=== PATIENT | male | born 1955 | race Caucasian/White ===

== ENCOUNTER 2023-09-06 09:53 | Inpatient (IN) ==
[2023-09-06] MEDS: Lactated Ringers 1000 ml BAG 1,000 ML IV ONE ×4 (11:29→20:59)
[2023-09-06 11:32] LABS: Hematocrit 46.5 % (38-53); Hemoglobin 15.5 g/dL (13.2-16.3); Mean Corpuscular Hemoglobin 29.8 pg (27-33); Mean Corpuscular Hgb Conc 33.2 g/dL (31-36); Mean Corpuscular Volume 89.8 fL (80-97); Mean Platelet Volume 7.7 fL (7.5-11.2); Platelet Count 149 10^3/uL (150-450); Red Blood Count 5.18 10^6/uL (4.06-5.63); Red Cell Distribution Width 15.9 % (12-17); White Blood Count 15.5 10^3/uL (3.6-10.2)
[2023-09-06 11:38] LABS: INR 1.36 (0.83-1.13)
[2023-09-06] MEDS: Albuterol/Ipratropium NEB.SOL (2.5/0.5 MG) 3 ML NEB.SOLN INH ONE (12:24)
[2023-09-06 12:38] LABS: ABS Basophils 0.2 10^3/uL (0.0-0.1); ABS Eosinophils 0.1 10^3/uL (0.0-0.5); ABS Lymphocytes 1.8 10^3/uL (1.0-4.8); ABS Monocytes 0.8 10^3/uL (0.0-1.1); ABS Neutrophils 12.7 10^3/uL (1.5-7.6); ABS Nucleated RBC 0.03 10^3/ul; Eosinophil % 0.6 %; Lymphocyte % 11.8 %; Nucleated Red Blood Cells % 0.2 %/100WBC (0.0-0.8); RBC Morphology Normal (Normal)
[2023-09-06 13:37] LABS: High Sensitivity Troponin 1 Hr 22 pg/mL (<20)
[2023-09-06 14:06] LABS: Albumin 3.3 g/dL (3.2-5.2); Albumin/Globulin Ratio 0.8 (1-3); Calcium 13.7 mg/dL (8.6-10.3); Creatinine, Serum 2.48 mg/dL (0.67-1.17); Globulin 3.9 g/dL (2-4); Potassium 5.1 mmol/L (3.5-5.0); Total Bilirubin 0.7 mg/dL (0.2-1.0); Total Protein 7.2 g/dL (6.4-8.9); eGFR CKD-EPI 27.4 (>60)
[2023-09-06] MEDS: Piperacillin/Tazobac 3.375 BAG 3.375 GM/100 ML BAG IV ONE (15:32)
[2023-09-06 16:07] LABS: Urine Appearance Clear; Urine Bilirubin Negative (Negative); Urine Blood 3+ (Negative); Urine Color Yellow; Urine Glucose Negative (Negative); Urine Ketones Negative (Negative); Urine Nitrite Negative (Negative); Urine Protein 1+ (>=30 mg/dL) (Negative); Urine Specific Gravity 1.021 (1.002-1.030); Urine Urobilinogen Negative (Negative); Urine pH 5.5 (5.0-8.0)
[2023-09-06 16:17] LABS: Urine Bacteria 1+ /HPF (Absent); Urine Red Blood Cell 3+(>10/hpf) /HPF (0-Trace); Urine Squamous Epithelial Cell Present /HPF (Absent); Urine White Blood Cell 2+(11-20/hpf) /HPF (0-Trace)
[2023-09-06] MEDS ORDERED: Albuterol/Ipratropium NEB.SOL (2.5/0.5 MG) 3 ML NEB.SOLN INH PRN (18:54)
[2023-09-06] MEDS ORDERED: Albuterol/Ipratropium NEB.SOL (2.5/0.5 MG) 3 ML NEB.SOLN INH SCH (19:00)
[2023-09-06] MEDS ORDERED: Dextrose 50% Syringe 50 ml 25 GM/50 ML SYRINGE IV PUSH PRN (19:02)
[2023-09-06 19:12] LABS: Urine Appearance No Cx Turbid (Clear); Urine Bilirubin No Culture Negative (Negative); Urine Blood No Culture 3+ (Negative); Urine Glucose No Culture Negative (Negative); Urine Ketones No Culture Negative (Negative); Urine Leukocytes No Culture Negative Leu/uL (Negative); Urine Nitrite No Culture Negative (Negative); Urine Protein No Culture 1+ (>=30 mg/dL) (Negative); Urine Specific Gravity No Cx 1.022 (1.002-1.030); Urine Urobilinogen No Cx Negative (Negative); Urine pH No Culture 5.5 (5.0-8.0)
[2023-09-06 19:21] LABS: Ur Squamous Epithelial No Cx Present /HPF (Absent); Ur Transitional Epi No Culture Present /HPF (Absent); Urine Bacteria No Culture 1+ /HPF (Absent); Urine Hyaline Casts No Culture Present /HPF (Absent); Urine Red Blood Cell No Cult 3+(>10/hpf) /HPF (0-Trace); Urine White Blood Cell No Cult 3+(>20/hpf) /HPF (0-Trace)
[2023-09-06] MEDS ORDERED: Zosyn per Pharmacy NOTE FOLLOW UP SCH (20:00)
[2023-09-06 20:36] LABS: Urine Color No Culture Light-Orange
[2023-09-06 20:37] LABS: Hepatitis B Surface Antigen Nonreactive (Nonreactive)
[2023-09-06 20:42] LABS: Hepatitis A Ab IgM Negative (Negative)
[2023-09-06 20:43] LABS: Hepatitis B Core IgM Nonreactive (Nonreactive)
[2023-09-06 20:55] LABS: Hepatitis C Antibody Negative (Negative)
[2023-09-06] MEDS: ZOSYN 3.375 GM Q8H per EXTENDED INFUSION IV SCH (20:59)
[2023-09-06] MEDS: Insulin GLARGINE 100 un/ml 10 ml VIAL SUBCUT SCH (21:23)
[2023-09-06] MEDS: Senna TAB 8.6 mg TAB PO SCH (21:27)
[2023-09-06 21:57] LABS: Albumin 2.9 g/dL (3.2-5.2); Albumin/Globulin Ratio 0.8 (1-3); Calcium 12.9 mg/dL (8.6-10.3); Creatinine, Serum 2.27 mg/dL (0.67-1.17); Globulin 3.5 g/dL (2-4); Potassium 4.9 mmol/L (3.5-5.0); Total Bilirubin 0.7 mg/dL (0.2-1.0); Total Protein 6.4 g/dL (6.4-8.9); eGFR CKD-EPI 30.5 (>60)
[2023-09-07 00:03] LABS: Hematocrit 43.6 % (38-53); Mean Corpuscular Hgb Conc 32.2 g/dL (31-36); Mean Corpuscular Volume 90.1 fL (80-97); Mean Platelet Volume 7.4 fL (7.5-11.2); Platelet Count 121 10^3/uL (150-450); Red Blood Count 4.83 10^6/uL (4.06-5.63)
[2023-09-07] MEDS: Heparin DRIP 25,000 UNITS BAG 25,000 UNITS/250 ML BAG IV SCH (00:03)
[2023-09-07] MEDS: Heparin 5000 UNITS/ML 1 mL VIAL IV SCH (00:04)
[2023-09-07 00:28] LABS: Creatinine, Serum 2.24 mg/dL (0.67-1.17)
[2023-09-07 01:38] LABS: ABS Basophils 0.1 10^3/uL (0.0-0.1); ABS Eosinophils 0.1 10^3/uL (0.0-0.5); ABS Lymphocytes 1.6 10^3/uL (1.0-4.8); ABS Monocytes 0.7 10^3/uL (0.0-1.1); ABS Neutrophils 9.4 10^3/uL (1.5-7.6); ABS Nucleated RBC 0.03 10^3/ul; Eosinophil % 0.9 %; Lymphocyte % 13.7 %; Nucleated Red Blood Cells % 0.2 %/100WBC (0.0-0.8)
[2023-09-07 07:23] LABS: Anion Gap 12 mmol/L (2-16); Blood Urea Nitrogen 48 mg/dL (6-24); CO2 Carbon Dioxide 26 mmol/L (22-32); Calcium 12.1 mg/dL (8.6-10.3); Chloride 100 mmol/L (101-111); Creatinine, Serum 2.25 mg/dL (0.67-1.17); Glucose 68 mg/dL (70-100); Magnesium 2.1 mg/dL (1.9-2.7); Phosphorus 4.4 mg/dL (2.5-5.0); Potassium 5.2 mmol/L (3.5-5.0); Sodium 138 mmol/L (135-145); eGFR CKD-EPI 30.8 (>60)
[2023-09-07 08:13] LABS: ABS Basophils 0.1 10^3/uL (0.0-0.1); ABS Eosinophils 0.1 10^3/uL (0.0-0.5); ABS Lymphocytes 1.8 10^3/uL (1.0-4.8); ABS Monocytes 0.6 10^3/uL (0.0-1.1); ABS Neutrophils 7.2 10^3/uL (1.5-7.6); ABS Nucleated RBC 0.03 10^3/ul; Eosinophil % 0.9 %; Hematocrit 46.5 % (38-53); Hemoglobin 14.8 g/dL (13.2-16.3); Lymphocyte % 18.2 %; Mean Corpuscular Hgb Conc 31.8 g/dL (31-36); Mean Corpuscular Volume 94.1 fL (80-97); Mean Platelet Volume 7.8 fL (7.5-11.2); Nucleated Red Blood Cells % 0.3 %/100WBC (0.0-0.8); Platelet Count 107 10^3/uL (150-450); RBC Morphology Normal (Normal); Red Blood Count 4.94 10^6/uL (4.06-5.63); Red Cell Distribution Width 16.6 % (12-17); White Blood Count 9.8 10^3/uL (3.6-10.2)
[2023-09-07] MEDS: Polyethylene Glycol 3350 17 GM PACKET PO SCH (13:04)
[2023-09-07] MEDS: CMCS: Pravastatin 20 mg TAB (NF) PO SCH (13:05)
[2023-09-07] MEDS ORDERED: Sulfur Hexaflouride MICROSPHR 25 MG VIAL ONE ×2 (13:59→16:31)
[2023-09-07] MEDS: ZOSYN 3.375 GM Q8H per EXTENDED INFUSION IV SCH (14:18)
[2023-09-07 15:05] LABS: Calcium (PTH Intact) 12.3 mg/dL (8.6-10.3)
[2023-09-07] MEDS: Sulfur Hexaflouride MICROSPHR 25 MG VIAL IV ONE (16:13)
[2023-09-07] MEDS ORDERED: Lorazepam PYXIS KEY PRN (16:59)
[2023-09-07] MEDS: LORazepam 2 mg VIAL 1 ml IV PUSH ONE (17:15)
[2023-09-07 21:19] LABS: Transferrin 150 mg/dL (203-362)
[2023-09-07] MEDS: Lactated Ringers 1000 ml BAG 1,000 ML IV SCH (23:18)
[2023-09-07] MEDS: Acetaminophen IV 1 GM/100ML 1,000 MG/100 ML BAG IV SCH (23:49)
[2023-09-07] MEDS: Enoxaparin 100 MG/ML SYR SUBCUT SCH (23:53)
[2023-09-07] MEDS: Nicotine PATCH 14 MG/24 HR PATCH TRANSDERM SCH (23:56)
[2023-09-08 03:18] LABS: Folate 4.38 ng/mL (5.90-24.80); PSA Screen Ultra Sensitive 7.291 ng/mL (0-4.000); TSH Ultra Thyroid Stim Horm 1.56 mcIU/mL (0.34-5.60)
[2023-09-08 04:46] LABS: Ferritin 14632.4 ng/mL (24-336)
[2023-09-08 06:41] LABS: Calcium 11.9 mg/dL (8.6-10.3); Creatinine, Serum 2.27 mg/dL (0.67-1.17); Magnesium 2.2 mg/dL (1.9-2.7); Phosphorus 4.7 mg/dL (2.5-5.0); Potassium 4.8 mmol/L (3.5-5.0); eGFR CKD-EPI 30.5 (>60)
[2023-09-08 06:44] LABS: Hematocrit 41.3 % (38-53); Hemoglobin 13.7 g/dL (13.2-16.3); Mean Corpuscular Hemoglobin 29.8 pg (27-33); Mean Corpuscular Hgb Conc 33.1 g/dL (31-36); Mean Corpuscular Volume 90.2 fL (80-97); Mean Platelet Volume 7.5 fL (7.5-11.2); Platelet Count 110 10^3/uL (150-450); Red Blood Count 4.58 10^6/uL (4.06-5.63); Red Cell Distribution Width 15.7 % (12-17); White Blood Count 9.2 10^3/uL (3.6-10.2)
[2023-09-08 08:17] LABS: ABS Basophils 0.1 10^3/uL (0.0-0.1); ABS Eosinophils 0.1 10^3/uL (0.0-0.5); ABS Lymphocytes 1.6 10^3/uL (1.0-4.8); ABS Monocytes 0.5 10^3/uL (0.0-1.1); ABS Nucleated RBC 0.02 10^3/ul; Eosinophil % 0.6 %; Lymphocyte % 17.3 %; Nucleated Red Blood Cells % 0.2 %/100WBC (0.0-0.8); RBC Morphology Normal (Normal)
[2023-09-08] MEDS: Lactated Ringers 1000 ml BAG 1,000 ML IV SCH (15:49)
[2023-09-08 18:28] LABS: C Reactive Protein 279.89 mg/L (<8.01)
[2023-09-09 07:06] LABS: Calcium 11.5 mg/dL (8.6-10.3); Creatinine, Serum 2.35 mg/dL (0.67-1.17); Magnesium 2.2 mg/dL (1.9-2.7); Potassium 4.8 mmol/L (3.5-5.0); eGFR CKD-EPI 29.2 (>60)
[2023-09-09 07:35] LABS: Hematocrit 38.9 % (38-53); Hemoglobin 12.9 g/dL (13.2-16.3); Mean Corpuscular Hgb Conc 33.3 g/dL (31-36); Mean Corpuscular Volume 90.2 fL (80-97); Mean Platelet Volume 7.4 fL (7.5-11.2); Platelet Count 93 10^3/uL (150-450); Red Blood Count 4.31 10^6/uL (4.06-5.63); Red Cell Distribution Width 15.5 % (12-17); White Blood Count 8.8 10^3/uL (3.6-10.2)
[2023-09-09 07:36] LABS: ABS Basophils 0.1 10^3/uL (0.0-0.1); ABS Eosinophils 0.1 10^3/uL (0.0-0.5); ABS Lymphocytes 1.9 10^3/uL (1.0-4.8); ABS Monocytes 0.5 10^3/uL (0.0-1.1); ABS Neutrophils 6.2 10^3/uL (1.5-7.6); ABS Nucleated RBC 0.03 10^3/ul; Eosinophil % 0.9 %; Lymphocyte % 21.8 %; Nucleated Red Blood Cells % 0.3 %/100WBC (0.0-0.8); RBC Morphology Normal (Normal)
[2023-09-10 00:43] LABS: Anaplasma phagocytophilum Negative (Negative); B. miyamotoi PCR, B Negative (Negative); Babesia divergens/MO-1 Negative (Negative); Babesia ducani Negative (Negative); Ehrlichia chaffeensis Negative (Negative); Ehrlichia ewingii/canis Negative (Negative); Ehrlichia muris eauclairensis Negative (Negative)
[2023-09-10 02:13] LABS: Venous Bicarbonate HCO3 25.6 mmol/L (24-28)
[2023-09-10 02:32] LABS: PCO2 Arterial 36 mmHg (35-45); PO2 Arterial 94 mmHg (80-100)
[2023-09-10 03:03] LABS: Hematocrit 39.1 % (38-53); Hemoglobin 12.7 g/dL (13.2-16.3); Mean Corpuscular Hemoglobin 29.2 pg (27-33); Mean Corpuscular Hgb Conc 32.4 g/dL (31-36); Mean Corpuscular Volume 90.3 fL (80-97); Mean Platelet Volume 7.4 fL (7.5-11.2); Platelet Count 88 10^3/uL (150-450); Red Blood Count 4.33 10^6/uL (4.06-5.63); Red Cell Distribution Width 15.8 % (12-17)
[2023-09-10 03:36] LABS: ABS Basophils 0.1 10^3/uL (0.0-0.1); ABS Eosinophils 0.1 10^3/uL (0.0-0.5); ABS Lymphocytes 1.9 10^3/uL (1.0-4.8); ABS Monocytes 0.4 10^3/uL (0.0-1.1); ABS Neutrophils 5.5 10^3/uL (1.5-7.6); ABS Nucleated RBC 0.05 10^3/ul; Lymphocyte % 24.2 %; Nucleated Red Blood Cells % 0.6 %/100WBC (0.0-0.8); RBC Morphology Normal (Normal)
[2023-09-10 08:19] LABS: Calcium 11.8 mg/dL (8.6-10.3); Creatinine, Serum 2.51 mg/dL (0.67-1.17)
[2023-09-10] MEDS: Lactated Ringers 1000 ml BAG 1,000 ML IV SCH (10:55)
[2023-09-10] MEDS: NS 0.9% 1000 ml BAG 1,000 ML IV SCH (15:44)
[2023-09-10] MEDS ORDERED: Levalbuterol 1.25MG/0.5ML NEB.SOL INH SCH ×2 (16:00→19:00)
[2023-09-10] MEDS: Levalbuterol 1.25MG/0.5ML NEB.SOL INH SCH (17:45)
[2023-09-10 21:57] LABS: Albumin 2.6 g/dL (3.2-5.2); Albumin/Globulin Ratio 0.7 (1-3); Calcium 11.7 mg/dL (8.6-10.3); Creatinine, Serum 2.5 mg/dL (0.67-1.17); Globulin 3.6 g/dL (2-4); Potassium 5.1 mmol/L (3.5-5.0); Total Bilirubin 0.8 mg/dL (0.2-1.0); Total Protein 6.2 g/dL (6.4-8.9); eGFR CKD-EPI 27.1 (>60)
[2023-09-11 06:18] LABS: Hematocrit 35.7 % (38-53); Hemoglobin 11.8 g/dL (13.2-16.3); Mean Corpuscular Hemoglobin 29.9 pg (27-33); Mean Corpuscular Volume 90.6 fL (80-97); Mean Platelet Volume 7.1 fL (7.5-11.2); Platelet Count 66 10^3/uL (150-450); Red Blood Count 3.94 10^6/uL (4.06-5.63); Red Cell Distribution Width 15.7 % (12-17); White Blood Count 6.7 10^3/uL (3.6-10.2)
[2023-09-11 06:57] LABS: Calcium 11.4 mg/dL (8.6-10.3); Creatinine, Serum 2.4 mg/dL (0.67-1.17); Magnesium 2.4 mg/dL (1.9-2.7); eGFR CKD-EPI 28.5 (>60)
[2023-09-11 07:35] LABS: ABS Eosinophils 0.1 10^3/uL (0.0-0.5); ABS Lymphocytes 1.8 10^3/uL (1.0-4.8); ABS Monocytes 0.4 10^3/uL (0.0-1.1); ABS Neutrophils 4.4 10^3/uL (1.5-7.6); ABS Nucleated RBC 0.03 10^3/ul; Eosinophil % 1.5 %; Lymphocyte % 27.3 %; Nucleated Red Blood Cells % 0.5 %/100WBC (0.0-0.8); RBC Morphology Normal (Normal)
[2023-09-11 20:48] LABS: Albumin 2.5 g/dL (3.2-5.2); Albumin/Globulin Ratio 0.7 (1-3); Calcium 11.2 mg/dL (8.6-10.3); Creatinine, Serum 2.43 mg/dL (0.67-1.17); Globulin 3.4 g/dL (2-4); Potassium 5.3 mmol/L (3.5-5.0); Total Bilirubin 0.8 mg/dL (0.2-1.0); Total Protein 5.9 g/dL (6.4-8.9); eGFR CKD-EPI 28.1 (>60)
[2023-09-12] MEDS: Levalbuterol 1.25MG/0.5ML NEB.SOL INH SCH (07:00)
[2023-09-12 07:06] LABS: Albumin 2.5 g/dL (3.2-5.2); Albumin/Globulin Ratio 0.7 (1-3); Calcium 11.3 mg/dL (8.6-10.3); Creatinine, Serum 2.3 mg/dL (0.67-1.17); Globulin 3.4 g/dL (2-4); Magnesium 2.5 mg/dL (1.9-2.7); Total Bilirubin 0.8 mg/dL (0.2-1.0); Total Protein 5.9 g/dL (6.4-8.9)
[2023-09-12 07:40] LABS: Hematocrit 35.2 % (38-53); Hemoglobin 11.5 g/dL (13.2-16.3); Mean Corpuscular Hemoglobin 29.3 pg (27-33); Mean Corpuscular Hgb Conc 32.6 g/dL (31-36); Mean Corpuscular Volume 90.1 fL (80-97); Mean Platelet Volume 7.2 fL (7.5-11.2); Platelet Count 57 10^3/uL (150-450); Red Blood Count 3.91 10^6/uL (4.06-5.63); Red Cell Distribution Width 15.8 % (12-17); White Blood Count 6.3 10^3/uL (3.6-10.2)
[2023-09-12 07:41] LABS: ABS Eosinophils 0.1 10^3/uL (0.0-0.5); ABS Lymphocytes 1.9 10^3/uL (1.0-4.8); ABS Monocytes 0.4 10^3/uL (0.0-1.1); ABS Neutrophils 3.8 10^3/uL (1.5-7.6); ABS Nucleated RBC 0.03 10^3/ul; Eosinophil % 1.6 %; Lymphocyte % 30.8 %; Nucleated Red Blood Cells % 0.5 %/100WBC (0.0-0.8); RBC Morphology Normal (Normal)
[2023-09-13 07:14] LABS: INR 1.13 (0.83-1.13)
[2023-09-13 07:18] LABS: Hematocrit 35.2 % (38-53); Hemoglobin 11.5 g/dL (13.2-16.3); Mean Corpuscular Hemoglobin 29.6 pg (27-33); Mean Corpuscular Hgb Conc 32.8 g/dL (31-36); Mean Corpuscular Volume 90.2 fL (80-97); Red Cell Distribution Width 15.8 % (12-17)
[2023-09-13 08:21] LABS: ABS Basophils 0.1 10^3/uL (0.0-0.1); ABS Eosinophils 0.1 10^3/uL (0.0-0.5); ABS Monocytes 0.6 10^3/uL (0.0-1.1); ABS Neutrophils 4.2 10^3/uL (1.5-7.6); ABS Nucleated RBC 0.09 10^3/ul; Eosinophil % 1.2 %; Lymphocyte % 28.8 %; Nucleated Red Blood Cells % 1.2 %/100WBC (0.0-0.8); Platelet Count 46 10^3/uL (150-450); RBC Morphology Normal (Normal)
[2023-09-13 10:22] LABS: Albumin 2.6 g/dL (3.2-5.2); Albumin/Globulin Ratio 0.7 (1-3); Calcium 11.7 mg/dL (8.6-10.3); Creatinine, Serum 2.25 mg/dL (0.67-1.17); Globulin 3.5 g/dL (2-4); Magnesium 2.5 mg/dL (1.9-2.7); Potassium 5.1 mmol/L (3.5-5.0); Total Bilirubin 0.9 mg/dL (0.2-1.0); Total Protein 6.1 g/dL (6.4-8.9); eGFR CKD-EPI 30.8 (>60)
[2023-09-13] MEDS: Amoxicillin/Clavul 875/125 TAB (Augmentin 875 tab) PO SCH (10:53)
[2023-09-13 10:54] LABS: Venous Bicarbonate HCO3 27.2 mmol/L (24-28)
[2023-09-13 18:10] LABS: Rapid COVID-19 Molecular Undetected (Undetected)
[2023-09-13] MEDS ORDERED: Levalbuterol 1.25MG/0.5ML NEB.SOL INH PRN (19:29)
[2023-09-13 21:01] LABS: Urine Appearance Cloudy; Urine Color Red; Urine Specific Gravity 1.018 (1.002-1.030)
[2023-09-13 21:07] LABS: Urine Bacteria Absent /HPF (Absent); Urine Red Blood Cell 3+(>10/hpf) /HPF (0-Trace); Urine White Blood Cell 2+(11-20/hpf) /HPF (0-Trace)
[2023-09-14 06:22] LABS: Hematocrit 31.5 % (38-53); Hemoglobin 10.3 g/dL (13.2-16.3); Mean Corpuscular Hemoglobin 29.2 pg (27-33); Mean Corpuscular Hgb Conc 32.6 g/dL (31-36); Mean Corpuscular Volume 89.6 fL (80-97); Red Blood Count 3.52 10^6/uL (4.06-5.63); Red Cell Distribution Width 15.4 % (12-17)
[2023-09-14 07:06] LABS: Albumin 2.4 g/dL (3.2-5.2); Albumin/Globulin Ratio 0.7 (1-3); Calcium 11.4 mg/dL (8.6-10.3); Creatinine, Serum 2.12 mg/dL (0.67-1.17); Globulin 3.3 g/dL (2-4); Magnesium 2.2 mg/dL (1.9-2.7); Potassium 4.6 mmol/L (3.5-5.0); Total Bilirubin 1.1 mg/dL (0.2-1.0); Total Protein 5.7 g/dL (6.4-8.9); eGFR CKD-EPI 33.1 (>60)
[2023-09-14 08:13] LABS: ABS Basophils 0.1 10^3/uL (0.0-0.1); ABS Eosinophils 0.1 10^3/uL (0.0-0.5); ABS Lymphocytes 2.1 10^3/uL (1.0-4.8); ABS Monocytes 0.5 10^3/uL (0.0-1.1); ABS Neutrophils 4.2 10^3/uL (1.5-7.6); ABS Nucleated RBC 0.12 10^3/ul; Eosinophil % 1.1 %; Mean Platelet Volume 7.1 fL (7.5-11.2); Nucleated Red Blood Cells % 1.7 %/100WBC (0.0-0.8); Platelet Count 40 10^3/uL (150-450)
[2023-09-14 20:05] LABS: Amphetamines Screen Blood None Detected; Cannabinoids Screen Blood None Detected; Cocaine Metabolites Screen Bl None Detected; Fentanyl/Acetyl FentanylScreen None Detected; Methadone Metabolites Scrn Bl None Detected; Methamphetamines/MDMA Screen None Detected; Opiates Screen Blood None Detected; Oxycodone/Oxymorphone Scrn Bl None Detected; Phencyclidine Screen Blood None Detected
[2023-09-15 08:48] LABS: ABS Neutrophils 4.2 10^3/uL (1.5-7.6); Hematocrit 32.1 % (38-53); Hemoglobin 10.3 g/dL (13.2-16.3); Mean Corpuscular Hemoglobin 28.7 pg (27-33); Mean Corpuscular Volume 89.9 fL (80-97); Mean Platelet Volume 7.5 fL (7.5-11.2); Platelet Count 33 10^3/uL (150-450); Red Blood Count 3.57 10^6/uL (4.06-5.63); White Blood Count 6.5 10^3/uL (3.6-10.2)
[2023-09-15 09:31] LABS: Calcium 11.6 mg/dL (8.6-10.3); Creatinine, Serum 1.99 mg/dL (0.67-1.17); Magnesium 2.3 mg/dL (1.9-2.7); Potassium 4.8 mmol/L (3.5-5.0); eGFR CKD-EPI 35.7 (>60)
[2023-09-15 09:42] LABS: ABS Basophils 0.1 10^3/uL (0.0-0.1); ABS Eosinophils 0.1 10^3/uL (0.0-0.5); ABS Lymphocytes 1.8 10^3/uL (1.0-4.8); ABS Monocytes 0.4 10^3/uL (0.0-1.1); ABS Nucleated RBC 0.12 10^3/ul; Eosinophil % 1.2 %; Nucleated Red Blood Cells % 1.8 %/100WBC (0.0-0.8); RBC Morphology Normal (Normal)
[2023-09-15 11:57] LABS: Albumin 2.6 g/dL (3.2-5.2); Albumin/Globulin Ratio 0.8 (1-3); Direct Bilirubin 0.5 mg/dL (0.03-0.18); Globulin 3.3 g/dL (2-4); Indirect Bilirubin 0.5 mg/dL (0.3-1.0); Total Protein 5.9 g/dL (6.4-8.9)
[2023-09-16 07:47] LABS: Hemoglobin 9.3 g/dL (13.2-16.3); Mean Corpuscular Hemoglobin 29.7 pg (27-33); Mean Corpuscular Hgb Conc 33.2 g/dL (31-36); Mean Corpuscular Volume 89.6 fL (80-97); Mean Platelet Volume 7.5 fL (7.5-11.2); Platelet Count 26 10^3/uL (150-450); Red Blood Count 3.13 10^6/uL (4.06-5.63); Red Cell Distribution Width 15.7 % (12-17); White Blood Count 6.4 10^3/uL (3.6-10.2)
[2023-09-16 07:52] LABS: ABS Basophils 0.1 10^3/uL (0.0-0.1); ABS Eosinophils 0.1 10^3/uL (0.0-0.5); ABS Lymphocytes 1.9 10^3/uL (1.0-4.8); ABS Monocytes 0.4 10^3/uL (0.0-1.1); ABS Nucleated RBC 0.17 10^3/ul; Eosinophil % 1.1 %; Lymphocyte % 30.1 %; Nucleated Red Blood Cells % 2.7 %/100WBC (0.0-0.8); Polychromasia 1+
[2023-09-16 09:22] LABS: Calcium 11.6 mg/dL (8.6-10.3); Creatinine, Serum 1.97 mg/dL (0.67-1.17); Magnesium 2.3 mg/dL (1.9-2.7); Potassium 4.8 mmol/L (3.5-5.0); eGFR CKD-EPI 35.9 (>60)
[2023-09-17 06:17] LABS: Calcium 12.1 mg/dL (8.6-10.3); Creatinine, Serum 2.05 mg/dL (0.67-1.17); Magnesium 2.3 mg/dL (1.9-2.7); eGFR CKD-EPI 34.2 (>60)
[2023-09-17 06:41] LABS: ABS Basophils 0.1 10^3/uL (0.0-0.1); ABS Eosinophils 0.1 10^3/uL (0.0-0.5); ABS Lymphocytes 2.3 10^3/uL (1.0-4.8); ABS Monocytes 0.5 10^3/uL (0.0-1.1); ABS Neutrophils 4.5 10^3/uL (1.5-7.6); ABS Nucleated RBC 0.17 10^3/ul; Anisocytosis 1+; Basophilic Stippling 1+; Eosinophil % 0.9 %; Lymphocyte % 30.9 %; Nucleated Red Blood Cells % 2.3 %/100WBC (0.0-0.8); Polychromasia 1+
[2023-09-17 07:36] LABS: Hematocrit 29.6 % (38-53); Hemoglobin 9.5 g/dL (13.2-16.3); White Blood Count 7.4 10^3/uL (3.6-10.2)
[2023-09-17 07:37] LABS: Mean Corpuscular Hemoglobin 28.8 pg (27-33); Mean Corpuscular Hgb Conc 32.1 g/dL (31-36); Mean Corpuscular Volume 89.6 fL (80-97); Red Cell Distribution Width 15.7 % (12-17)
[2023-09-17 07:38] LABS: Mean Platelet Volume 7.5 fL (7.5-11.2); Platelet Count 27 10^3/uL (150-450)
[2023-09-18 07:53] LABS: Hematocrit 28.6 % (38-53); Hemoglobin 9.5 g/dL (13.2-16.3); Mean Corpuscular Hemoglobin 29.6 pg (27-33); Mean Corpuscular Hgb Conc 33.2 g/dL (31-36); Mean Corpuscular Volume 89.2 fL (80-97); Mean Platelet Volume 7.5 fL (7.5-11.2); Platelet Count 23 10^3/uL (150-450); Red Cell Distribution Width 15.7 % (12-17); White Blood Count 7.6 10^3/uL (3.6-10.2)
[2023-09-18 08:06] LABS: Calcium 11.5 mg/dL (8.6-10.3); Creatinine, Serum 2.38 mg/dL (0.67-1.17); Magnesium 2.5 mg/dL (1.9-2.7); Potassium 5.2 mmol/L (3.5-5.0); eGFR CKD-EPI 28.6 (>60)
[2023-09-18 08:51] LABS: ABS Basophils 0.1 10^3/uL (0.0-0.1); ABS Eosinophils 0.1 10^3/uL (0.0-0.5); ABS Lymphocytes 2.3 10^3/uL (1.0-4.8); ABS Monocytes 0.6 10^3/uL (0.0-1.1); ABS Neutrophils 4.6 10^3/uL (1.5-7.6); ABS Nucleated RBC 0.34 10^3/ul; Eosinophil % 0.8 %; Lymphocyte % 30.3 %; Nucleated Red Blood Cells % 4.4 %/100WBC (0.0-0.8); RBC Morphology Normal (Normal)
[2023-09-18] MEDS ORDERED: Magnesium Hydroxide LIQ 30 ML UDC PO PRN (08:58)
[2023-09-18 12:05] LABS: HIT ELISA 0.052 OD (<0.400); Heparin PF4 Antibody Interp Negative (Negative)
[2023-09-18 13:38] LABS: Rapid COVID-19 Molecular Undetected (Undetected)
[2023-09-19 05:21] VITALS: BP 105/62
== END 2023-09-19 09:52 | DRG 871 ==
LOC: EDHOLD 09:53 → ED 09:53 → SUATTDRO 09-07 06:01 → SSU 09-07 08:55 → EDHOLD 09-07 09:41 → MEDTELE 09-07 09:49 → SUATTDRO 09-08 13:21 → MEDTELE 09-11 01:05
PROVIDERS: ADMIT Internal Medicine; ATTEND Student in an Organized Health Care Education/Training Program

== ENCOUNTER 2023-09-21 11:09 | Inpatient (IN) ==
[2023-09-21] MEDS ORDERED: Calcium CHLORIDE 10% SYRINGE 1 GM/10 ML ONE (11:19)
[2023-09-21] MEDS ORDERED: Rocuronium 50 mg VIAL 10 mg/ml 5 ml VIAL (50 mg) ONE (11:28)
[2023-09-21] MEDS ORDERED: Norepinephrine 4 MG/250mL D5W 4,000 MCG/250 ML BAG IV ONE ×2 (11:29→13:35)
[2023-09-21] MEDS: Lidocaine 2% (CARDIAC or IV) 20 MG/ML 5 ML SYRINGE (100 MG) INJ ONE (11:30)
[2023-09-21] MEDS: Norepinephrine 4 MG/250mL D5W 4,000 MCG/250 ML BAG IV SCH (11:32)
[2023-09-21] MEDS: Ketamine HCL 50 mg/ml 10 ml VIAL (500 MG) IV ONE (11:34)
[2023-09-21] MEDS: Rocuronium 50 mg VIAL 10 mg/ml 5 ml VIAL (50 mg) IV ONE (11:35)
[2023-09-21] MEDS: CALCIUM GLUCONATE 1GM/50ML NS BAG IV SCH (11:45)
[2023-09-21 11:48] LABS: Venous Bicarbonate HCO3 15.8 mmol/L (24-28)
[2023-09-21] MEDS: fentaNYL 100 mcg/2 ml 50 MCG/ML VIAL IV SLOW PU ONE (12:00)
[2023-09-21 12:03] LABS: Hematocrit 28.9 % (38-53); Mean Corpuscular Hemoglobin 29.2 pg (27-33); Mean Corpuscular Hgb Conc 31.3 g/dL (31-36); Mean Corpuscular Volume 93.5 fL (80-97); Red Blood Count 3.09 10^6/uL (4.06-5.63); Red Cell Distribution Width 16.8 % (12-17); White Blood Count 10.9 10^3/uL (3.6-10.2)
[2023-09-21] MEDS: Lactated Ringers 1000 ml BAG 1,000 ML IV ONE ×2 (12:10→12:30)
[2023-09-21 12:14] LABS: Activated Partial Thrombo Time 23.6 seconds (26.0-38.0); INR 1.28 (0.83-1.13)
[2023-09-21] MEDS ORDERED: fentaNYL 100 mcg/2 ml 50 MCG/ML VIAL ONE (12:23)
[2023-09-21] MEDS ORDERED: Propofol 10 mg/ml 100 ML BTL 1,000 MG/100 ML BTL ONE (12:24)
[2023-09-21 12:27] LABS: High Sens Troponin Baseline 28 pg/mL (<20)
[2023-09-21 12:35] LABS: ALT 140 U/L (7-52); Albumin 2.6 g/dL (3.2-5.2); Albumin/Globulin Ratio 0.7 (1-3); Alkaline Phosphatase 584 U/L (35-149); C Reactive Protein 374.36 mg/L (<8.01); CO2 Carbon Dioxide 19 mmol/L (22-32); Chloride 99 mmol/L (101-111); Glucose 134 mg/dL (70-100); Lipase 32 U/L (11.0-82.0); Sodium 144 mmol/L (135-145); Total Bilirubin 3.4 mg/dL (0.2-1.0); Total Protein 6.6 g/dL (6.4-8.9); eGFR CKD-EPI 10.9 (>60)
[2023-09-21] MEDS: Vancomycin 1,500 MG in NS 0.9% 250 ml 250 ML IVPB ONE (12:45)
[2023-09-21 12:47] LABS: Blood Urea Nitrogen > 120 mg/dL (6-24)
[2023-09-21] MEDS: Pantoprazole 80 mg in NS BAG 80 MG/250 ML BAG IV ONE (12:49)
[2023-09-21 13:00] LABS: Anion Gap 26 mmol/L (2-16)
[2023-09-21] MEDS: Pantoprazole VIAL 40 MG VIAL IV ONE (13:00)
[2023-09-21] MEDS: Propofol 10 mg/ml 100 ML BTL 1,000 MG/100 ML BTL IV SCH (13:00)
[2023-09-21] MEDS ORDERED: Norepinephrine 4 MG/250mL NS 4,000 MCG/250 ML BAG IV SCH (13:00)
[2023-09-21 13:07] LABS: Mean Platelet Volume 8.3 fL (7.5-11.2); Platelet Count 30 10^3/uL (150-450)
[2023-09-21] MEDS: Piperacillin/Tazobac 3.375 BAG 3.375 GM/100 ML BAG IV ONE (13:15)
[2023-09-21 13:24] LABS: ABS Basophils 0.2 10^3/uL (0.0-0.1); ABS Lymphocytes 3.5 10^3/uL (1.0-4.8); ABS Monocytes 0.7 10^3/uL (0.0-1.1); ABS Neutrophils 6.5 10^3/uL (1.5-7.6); ABS Nucleated RBC 0.56 10^3/ul; Eosinophil % 0.3 %; Lymphocyte % 32.2 %; Nucleated Red Blood Cells % 5.2 %/100WBC (0.0-0.8); Polychromasia 1+
[2023-09-21 13:31] LABS: High Sensitivity Troponin 1 Hr 26 pg/mL (<20)
[2023-09-21 13:44] LABS: Resp Rate 18
[2023-09-21 13:49] LABS: Urine Appearance Turbid; Urine Bilirubin Negative (Negative); Urine Blood 3+ (Negative); Urine Color Yellow; Urine Glucose Negative (Negative); Urine Ketones Negative (Negative); Urine Nitrite Negative (Negative); Urine Protein 1+ (>=30 mg/dL) (Negative); Urine Specific Gravity 1.012 (1.002-1.030); Urine Urobilinogen Negative (Negative)
[2023-09-21 13:58] LABS: Urine Bacteria 3+ /HPF (Absent); Urine Red Blood Cell 3+(>10/hpf) /HPF (0-Trace); Urine White Blood Cell 3+(>20/hpf) /HPF (0-Trace)
[2023-09-21 14:02] LABS: PCO2 Arterial 60 mmHg (35-45); PO2 Arterial 309 mmHg (80-100)
[2023-09-21] MEDS: fentaNYL INFUSION 50 mcg/mL VL 2,500 MCG/50 ML VIAL IV SCH (14:17)
[2023-09-21] MEDS: Calcium Gluconate 2 GM in NS 0.9% 100 ml BAG 100 ML IVPB ONE (14:18)
[2023-09-21] MEDS: Chlorhexidine MOUTHWASH 0.12% 15 ML UDC TOPICAL SCH ×2 (14:42→14:45)
[2023-09-21] MEDS: Albumin Human 5% 12.5 GM/250 ML BTL IV ONE ×2 (14:50→17:44)
[2023-09-21] MEDS ORDERED: Zosyn per Pharmacy NOTE FOLLOW UP SCH (15:00)
[2023-09-21] MEDS ORDERED: Vancomycin per Pharmacy 1 EA NOTE FOLLOW UP SCH (15:00)
[2023-09-21] MEDS: Vancomycin 500 MG in NS 0.9% 250 ML IVPB ONE (15:39)
[2023-09-21] MEDS: Tranexamic Acid 1,000 MG/10 ML SDV TOPICAL ONE (16:40)
[2023-09-21] MEDS: Norepinephrine 16 MG/250mL NS 16,000 MCG/250 ML BAG IV SCH (16:53)
[2023-09-21 17:22] LABS: Potassium Redraw 6.9 mmol/L (3.5-5.0)
[2023-09-21 17:24] LABS: Anion Gap 23 mmol/L (2-16); CO2 Carbon Dioxide 20 mmol/L (22-32); Calcium 10.5 mg/dL (8.6-10.3); Chloride 97 mmol/L (101-111); Creatinine, Serum 5.15 mg/dL (0.67-1.17); Glucose 304 mg/dL (70-100); Potassium 6.9 mmol/L (3.5-5.0); Sodium 140 mmol/L (135-145); eGFR CKD-EPI 11.3 (>60)
[2023-09-21 17:26] LABS: Blood Urea Nitrogen > 120 mg/dL (6-24)
[2023-09-21] MEDS: ZOSYN 3.375 GM Q12H per EXTENDED INFUSION IV SCH (17:39)
[2023-09-21] MEDS: Dextrose 50% Syringe 50 ml 25 GM/50 ML SYRINGE IV PUSH ONE (17:53)
[2023-09-21] MEDS: PHENYLEPHRINE DRIP IVPREMIX 50 MG/250 ML BAG IV SCH (18:10)
[2023-09-21] MEDS ORDERED: Dextrose 50% Syringe 50 ml 25 GM/50 ML SYRINGE IV PUSH PRN (18:52)
[2023-09-21] MEDS ORDERED: Enoxaparin 40 MG/0.4 ML SYR SUBCUT SCH (21:00)
[2023-09-21 23:21] LABS: Anion Gap 21 mmol/L (2-16); CO2 Carbon Dioxide 20 mmol/L (22-32); Calcium 10.2 mg/dL (8.6-10.3); Chloride 99 mmol/L (101-111); Glucose 213 mg/dL (70-100); Potassium 6.4 mmol/L (3.5-5.0); Sodium 140 mmol/L (135-145); eGFR CKD-EPI 10.5 (>60)
[2023-09-22 00:25] LABS: Blood Urea Nitrogen > 120 mg/dL (6-24)
[2023-09-22 04:59] LABS: Hematocrit 22.4 % (38-53); Hemoglobin 7.7 g/dL (13.2-16.3); Mean Corpuscular Hemoglobin 31.1 pg (27-33); Mean Corpuscular Hgb Conc 34.4 g/dL (31-36); Mean Corpuscular Volume 90.3 fL (80-97); Red Blood Count 2.48 10^6/uL (4.06-5.63); Red Cell Distribution Width 16.2 % (12-17)
[2023-09-22 05:05] LABS: Anion Gap 19 mmol/L (2-16); Blood Urea Nitrogen > 120 mg/dL (6-24); CO2 Carbon Dioxide 21 mmol/L (22-32); Calcium 9.9 mg/dL (8.6-10.3); Chloride 101 mmol/L (101-111); Glucose 139 mg/dL (70-100); Sodium 141 mmol/L (135-145)
[2023-09-22 05:06] LABS: ALT 321 U/L (7-52); Albumin 2.6 g/dL (3.2-5.2); Albumin/Globulin Ratio 0.8 (1-3); Alkaline Phosphatase 551 U/L (35-149); Creatinine, Serum 5.88 mg/dL (0.67-1.17); Globulin 3.1 g/dL (2-4); Total Bilirubin 4.6 mg/dL (0.2-1.0); Total Protein 5.7 g/dL (6.4-8.9); eGFR CKD-EPI 9.7 (>60)
[2023-09-22 05:33] LABS: Vancomycin Random 10.5 mcg/mL
[2023-09-22] MEDS: Vancomycin Random Level NOTE FOLLOW UP ONE (05:33)
[2023-09-22 08:06] LABS: Mean Platelet Volume 8.4 fL (7.5-11.2); Platelet Count 33 10^3/uL (150-450)
[2023-09-22 08:11] LABS: White Blood Count 12.6 10^3/uL (3.6-10.2)
[2023-09-22 08:12] LABS: ABS Basophils 0.1 10^3/uL (0.0-0.1); ABS Eosinophils 0.1 10^3/uL (0.0-0.5); ABS Lymphocytes 3.6 10^3/uL (1.0-4.8); ABS Monocytes 1.2 10^3/uL (0.0-1.1); ABS Neutrophils 7.3 10^3/uL (1.5-7.6); ABS Nucleated RBC 0.84 10^3/ul; Eosinophil % 0.5 %; Lymphocyte % 28.9 %; Nucleated Red Blood Cells % 6.8 %/100WBC (0.0-0.8); Polychromasia 1+; RBC Morphology Normal (Normal)
[2023-09-22 08:13] VITALS: BP 98/45
[2023-09-22 08:25] LABS: Resp Rate 22
[2023-09-22 08:28] LABS: PCO2 Arterial 36 mmHg (35-45); PO2 Arterial 64 mmHg (80-100)
[2023-09-22] MEDS ORDERED: Lorazepam PYXIS KEY PRN ×2 (08:35→09:21)
[2023-09-22] MEDS: Morphine 10 MG/ML VIAL (1 ml) IV PRN ×2 (08:51→09:15)
[2023-09-22] MEDS: LORazepam 2 mg VIAL 1 ml IV PUSH ONE (09:05)
[2023-09-22] MEDS ORDERED: Morphine 10 MG/ML VIAL (1 ml) IV PRN (09:09)
[2023-09-22] MEDS ORDERED: LORazepam 2 mg VIAL 1 ml IV PUSH PRN (09:21)
[2023-09-22] MEDS: Morphine 10 MG/ML VIAL (1 ml) ONE (09:23)
== END 2023-09-22 09:33 | disposition expired | DRG 871 ==
LOC: ED 11:09 → EDHOLD 13:13 → ICU 13:26
PROVIDERS: ADMIT Internal Medicine Critical Care Medicine; ATTEND Internal Medicine Critical Care Medicine